=== PATIENT | female | born 1980 | race Two or more races ===

== ENCOUNTER 2018-01-01 17:51 | Emergency (ER) | payer OTHER ==
[~2018-01-01] VITALS: Ht 157.5 cm; Wt 56.2 kg
[~2018-01-01 17:51] MED LIST: LEVO88TA4 PO
[2018-01-01 19:10] LABS: BASOPHILS # (AUTO) 0.02 x10^3/uL (0-0.1); BASOPHILS % (AUTO) 0 % (0-1); EOSINOPHILS # (AUTO) 0.18 x10^3/uL (0-0.4); EOSINOPHILS % (AUTO) 2 % (1-7); LYMPHOCYTES # (AUTO) 2.52 x10^3/uL (1-3.4); LYMPHOCYTES % (AUTO) 33 % (22-44); MD NO; MEAN CORPUSCULAR HEMOGLOBIN 32.9 pg (27.0-34.8); MEAN CORPUSCULAR HGB CONC 34.4 g/dL (32.4-35.8); MEAN CORPUSCULAR VOLUME 95.8 fL (80-100); MEAN PLATELET VOLUME 8.2 fL (7.4-10.4); MONOCYTES # (AUTO) 0.63 x10^3/uL (0.2-0.8); MONOCYTES % (AUTO) 8 % (2-9); NEUTROPHILS # (AUTO) 4.25 x10^3/uL (1.8-6.8); NEUTROPHILS % (AUTO) 56 % (42-75); PLATELET COUNT 222 x10^3/uL (130-400)
[2018-01-01 19:20] LABS: ALBUMIN 3.9 g/dL (3.4-5.0); ANION GAP 2 mmol/L (5-15); CALCIUM 8.5 mg/dL (8.5-10.1); CHLORIDE 106 mmol/L (98-107); CREATININE 0.68 mg/dL (0.55-1.02)
[2018-01-01 19:21] LABS: MICROSCOPIC INDICATED
[2018-01-01 19:37] LABS: CULTURE INDICATED? YES
[2018-01-01 20:11] VITALS: BP 150/95
== END 2018-01-01 20:25 | disposition home or self-care (01) ==
LOC: ED 20:00
DX: O03.4 Incomplete spontaneous abortion without complication (principal)
CPT/HCPCS: 36415; 76801; 80048; 81001; 82040; 84702; 85025; 86901; 87086; 99284

== ENCOUNTER 2020-07-10 12:27 | Emergency (ER) | payer OTHER ==
[~2020-07-10] VITALS: Ht 157.5 cm; Wt 58.0 kg
[2020-07-10 12:55] LABS: BASOPHILS % (AUTO) 1 % (0-1); EOSINOPHILS % (AUTO) 1 % (1-7); LYMPHOCYTES % (AUTO) 23 % (22-44); MEAN CORPUSCULAR HEMOGLOBIN 33.3 pg (27.0-34.8); MEAN CORPUSCULAR HGB CONC 34.8 g/dL (32.4-35.8); MEAN PLATELET VOLUME 8.4 fL (7.4-10.4); MONOCYTES % (AUTO) 6 % (2-9); NEUTROPHILS % (AUTO) 70 % (42-75); PLATELET COUNT 206 x10^3/uL (130-400); RED BLOOD COUNT 3.87 x10^6/uL (3.82-5.3); RED CELL DISTRIBUTION WIDTH 12.8 % (9.6-15.2)
--- NOTE | 2020-07-10 13:00 | NUR ---
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
[2020-07-10 13:01] LABS: MD NO
[2020-07-10 13:03] LABS: ANION GAP 5 mmol/L (5-15); CALCIUM 8.8 mg/dL (8.5-10.1); CHLORIDE 109 mmol/L (98-107)
--- NOTE | 2020-07-10 13:10 | NUR ---
assumed care of pt. pt here for vaginal bleeding x1 day. pt reports that she is about 2 months , A1. pt reports that she has not had any care yet. pt reports that she has used 1 pad for gher bleeding today, but no clots present. pt c/o mild low abd pain, but denies cramping, no urinary c/o. no family at bedside
--- NOTE | 2020-07-10 13:16 | NUR ---
US in progress at bedside
[2020-07-10 13:23] LABS: ALANINE AMINOTRANSFERASE 13 U/L (12-78); ALBUMIN 3.4 g/dL (3.4-5.0); ALKALINE PHOSPHATASE 68 U/L (45-117); BILIRUBIN,TOTAL 0.4 mg/dL (0.2-1.0); CREATININE 0.54 mg/dL (0.55-1.02); TOTAL PROTEIN 7.2 g/dL (6.4-8.2)
--- NOTE | 2020-07-10 13:35 | NUR ---
Task RN: report to Carolyn DARBY
--- NOTE | 2020-07-10 13:40 | NUR ---
REPORT FROM HEATH DARBY, ASSUME CARE OF PT AT THIS TIME.
--- NOTE | 2020-07-10 13:54 | NUR ---
CLEAN CATCH URINE ON COUNTER. PT INFORMED OF ST CATH URINE ORDER. PT STATES SMALL AMOUNT OF BLEEDING THIS MORNING, NO BLEEDING NOW. PT DOES NOT WANT TO DO CATHETER. URINE COLLECTED AND SENT TO LAB.
[2020-07-10 14:16] LABS: MICROSCOPIC INDICATED
[2020-07-10 15:04] VITALS: BP 121/61
== END 2020-07-10 15:10 | disposition home or self-care (01) ==
LOC: ED 15:00
DX: O20.0 Threatened abortion (principal); Z3A.09 9 weeks gestation of pregnancy
CPT/HCPCS: 36415; 76801; 80053; 81001; 84702; 85025; 86901; 87086; 99284